=== PATIENT | female | born 1965 | race African-American/Black ===

== ENCOUNTER 2017-12-08 06:44 | Day surgery (SDC) | payer OTHER ==
[2017-12-08] MEDS ORDERED: Midazolam HCl 2 mg/2 ml Vial ONE (09:10)
--- NOTE | 2017-12-08 09:56 | OP ---
DATE OF PROCEDURE: 12/08/2017 GI ENDOSCOPY NOTE SURGEON: Saad Martinez M.D. ACID DUMPER SURGEON: None. PROCEDURES: 1. EGD with biopsies. 2. Colonoscopy, diagnostic. INDICATIONS: 1. Upper abdominal pain. 2. Lower abdominal pain. 3. Prior history of diverticulitis. 4. Positive fecal occult blood test. MEDICATIONS: See anesthesia record. FINDINGS: After discussion of the risks, benefits, and alternatives of the procedure, informed conse nt was obtained and witnessed. Pre-endoscopic cardiopulmonary examination was satisfactory. Timeout was performed before sedation was achieved. Sedation was achieved with anesthesia assistance in the endoscopy unit. A Pentax adult upper endoscope was placed into the oropharynx and passed through th e cricopharyngeus under direct visualization. The esophageal mucosa appears normal throughout with a normal-appearing Z-line at 35 cm from the incisors. The endoscope was advanced through the GE junct ion, and into the stomach. Forward and retroflexed views of the entire gastric mucosa were obtained. In the gastric antrum and body, there is some patchy erythema and a few small shallow erosions. I obtained biopsies from the gastric antrum and body to rule out H. pylori infection. The endoscope wa s advanced through the pylorus and into the first and second portions of the duodenum, which appeared normal. The upper endoscope was then completely withdrawn and the patient was repositioned. Digital rectal exam was performed, which was unremarkable. A Pentax adult colonoscope was inserted i nto the anus and passed forward to the cecum in the usual fashion. The cecal base was identified by the appendiceal orifice as well as the ileocecal valve. The terminal ileum was intubated and the ile al mucosa appeared normal. The colonoscope was then slowly withdrawn in a gradual and circumferentia l manner with careful examination of the entire colonic mucosa. The quality of the prep was good. T he colonic mucosa appeared normal throughout. There were no polyps or mass lesions visualized. No b leeding lesion visualized. In the sigmoid colon, there are multiple small and large diverticula with no evidence of diverticulitis. Retroflexion of the rectum showed no additional abnormalities. The colonoscope was completely withdrawn and the patient allowed to recover. The patient tolerated the p rocedure well. There were no immediate post-procedure complications. IMPRESSION: 1. Erosive gastritis in the gastric antrum and body. Biopsied to rule out Helicobacter pylori. 2. Otherwise, normal esophagogastroduodenoscopy. 3. Sigmoid diverticulosis. 4. Otherwise, normal colonoscopy to the terminal ileum. RECOMMENDATIONS: 1. We will start her on omeprazole 40 mg by mouth daily. 2. Follow up pathology on the gastric biopsies. 3. Recall for screening colonoscopy at a 10-year interval. 4. Follow up in GI clinic in 6-8 weeks.
== END 2017-12-08 10:07 | disposition home or self-care (01) ==
LOC: SDC 06:44
PROVIDERS: ATTEND Internal Medicine
PROC: 0DJD8ZZ Inspection of Lower Intestinal Tract, Via Natural or Artificial Opening Endoscopic (ICD-10-PCS; principal; 2017-12-08)
PROC: 0DB68ZX Excision of Stomach, Via Natural or Artificial Opening Endoscopic, Diagnostic (ICD-10-PCS; principal; 2017-12-08)
DX: K29.50 Unspecified chronic gastritis without bleeding (principal); B96.81 Helicobacter pylori [H. pylori] as the cause of diseases classified elsewhere; K29.60 Other gastritis without bleeding; K57.30 Diverticulosis of large intestine without perforation or abscess without bleeding; Z87.891 Personal history of nicotine dependence
CPT/HCPCS: 88305; 88312; J2250

== ENCOUNTER 2018-08-22 09:00 | Outpatient (CLI) | payer OTHER ==
--- NOTE | 2018-08-23 08:42 | MMO ---
Bilateral MAMMO Bilat Screen [facility]. CLINICAL HISTORY: Patient is 53 years old and is seen for screening. The patient has no family history of breast cancer. The patient has no personal history of cancer. VIEWS: The views performed were: bilateral craniocaudal and bilateral mediolateral oblique. FILMS COMPARED: The present examination has been compared to prior imaging studies performed at [facility] on 07/22/2016 and 09/01/2016. This study has been interpreted with the assistance of computer-aided detection. MAMMOGRAM FINDINGS: The breasts are heterogeneously dense, which could obscure a lesion on mammography. There are multiple stable equal density nodules of varying size with obscured margins seen in both breasts. There are no suspicious masses, suspicious calcifications, or new areas of architectural distortion. IMPRESSION: THERE IS NO MAMMOGRAPHIC EVIDENCE OF MALIGNANCY. A ROUTINE FOLLOW-UP MAMMOGRAM IN 1 YEAR IS RECOMMENDED. ACR BI-RADS Category 2 - Benign finding MAMMOGRAPHY NOTE: 1. A negative mammogram report should not delay a biopsy if a dominant of clinically suspicious mass is present. 2. Approximately 10% to 15% of breast cancers are not detected by mammography. 3. Adenosis and dense breasts may obscure an underlying neoplasm. Reported by: EDILMA PARKER MD Electonically Signed: [id number]
== END 2018-08-22 09:01 | disposition home or self-care (01) ==
LOC: SCSMAMMO 09:00
PROVIDERS: ATTEND Family Medicine
DX: Z12.31 Encounter for screening mammogram for malignant neoplasm of breast (principal)
CPT/HCPCS: 77067